=== PATIENT | female | born 2005 | race African-American/Black ===

== ENCOUNTER 2024-10-27 11:00 | Emergency (ER) | payer OTHER ==
[2024-10-27 11:44] VITALS: BP 148/102; PULSE 99; RESP 18; TEMP 99; BMI 29.2
[2024-10-27] MEDS ORDERED: IBUPROFEN 400 MG TABLET (FP) PO ONE (12:50)
[2024-10-27] MEDS: IBUPROFEN 400 MG TABLET (FP) PO ONE (12:59)
== END 2024-10-27 17:20 | disposition home or self-care (01) ==
LOC: FER 11:00
DX: M25.572 Pain in left ankle and joints of left foot (principal); W10.8XXA Fall (on) (from) other stairs and steps, initial encounter
CPT/HCPCS: 73610-TC-LT-FY; 73630-TC-LT; 99283-25